=== PATIENT | female | born 1990 | race Hispanic/Latino ===

== ENCOUNTER → 2017-07-06 | Day surgery (SDC) | payer BC ==
[~2017-07-06] MED LIST: Lactated Ringer's 1,000 ML IV SCH; Ondansetron HCl/PF 4 MG/2 ML Vial IVP PRN; Promethazine HCl 25 MG/ML VIAL IM/IV PRN
[2017-07-06 21:11] VITALS: BMI 37.8
[2017-07-06 22:07] LABS: #Eosinphils 0.1 thou/uL (0.0-0.7); #Lymphocytes 2.1 thou/uL (1.20-3.40); #Monocytes 0.6 thou/uL (0.11-0.59); #Neutrophils 6.3 thou/uL (1.40-6.50); %Basophils 0.2 % (0.0-1.0); %Eosinophils 1.3 % (0.0-10.0); %Lymphocytes 22.7 % (21.0-51.0); %Monocytes 6.2 % (0.0-10.0); Hematocrit 33.7 % (36.0-47.0); Mean Platelet Volume 6.5 fL (7.4-10.4); Red Blood Cell (RBC) Count 3.97 mill/uL (4.20-5.40)
[2017-07-06 22:22] LABS: ALT (SGPT) 10 U/L (8-55); AST (SGOT) 9 U/L (5-34); Alkaline Phosphatase 104 U/L (40-150); Anion Gap 11 mmol/L (10-20); BUN (Urea Nitrogen) 8 mg/dL (7.0-18.7); Bilirubin, Total 0.3 mg/dL (0.2-1.2); Calc. Creatinine Clearance 214 mL/min (70-130); Calcium 9.3 mg/dL (7.8-10.44); Carbon Dioxide 25 mmol/L (22-29); Chloride 104 mmol/L (98-107); Estimated GFR-MDRD Greater than 90; Globulin 3.4 g/dL (2.4-3.5); Protein, Total 6.7 g/dL (6.0-8.3)
--- NOTE | 2017-07-07 00:24 | PRG ---
DATE OF SERVICE: 07/06/2017 PRESENTING COMPLAINT: Nausea and vomiting at 30 weeks' gestation. HISTORY OF PRESENT ILLNESS: Ms. Matamoros is a 26-year-old 3, para 0, AB 2 at 30-31 weeks' gest ation, who sees Dr. Anastacia Thurston and she reports nausea and vomiting over the weekend. She denies fev er. She denies rupture of membranes. She denies right upper quadrant pain. OB [employer] HISTORY: SAB x2. Reports an uncomplicated . Antepartum record not available. PAST MEDICAL HISTORY: None. PAST SURGICAL HISTORY: None. ALLERGIES: Denies. MEDICATIONS: vitamins. SOCIAL HISTORY: Denies tobacco, alcohol, IV drug use. FAMILY HISTORY: Noncontributory. REVIEW OF SYSTEMS: Noncontributory. PHYSICAL EXAMINATION: GENERAL: Female in no acute distress. VITAL SIGNS: Temperature 98.4, respirations 18, blood pressure 118/72, pulse 90. HEENT: Within normal limits. LUNGS: Clear to auscultation bilaterally. HEART: Regular rate and rhythm. ABDOMEN: Soft and nontender. She has mild midepigastric discomfort on deep palpation. She has no r ight upper quadrant tenderness. No CVA tenderness. FHTs are 140s. PELVIC: Deferred. EXTREMITIES: Without clubbing, cyanosis, or edema. LABORATORY STUDIES: The patient's white count is 9.0, hematocrit is 33%, platelet count is slightly elevated at 401. Differential is within normal limits. Comprehensive metabolic panel is unremarkabl e. HEART RATE TRACING: heart rate is noted to be 130s-140s, positive accels, no decels, no contractions noted. CLINICAL COURSE: The patient received approximately 2 liters of lactated Ringer's as well as Phenerg an 25 mg. She had immediate improvement in her symptomatology and after approximately 2 hours, she i s discharged home, to keep scheduled followup with Dr. Anastacia Thurston.
== END ==
LOC: L&D/OP 20:47
PROVIDERS: ATTEND Family Medicine
DX: O99.89 Other specified diseases and conditions complicating pregnancy, childbirth and the puerperium (principal); R11.2 Nausea with vomiting, unspecified; Z79.899 Other long term (current) drug therapy; Z3A.31 31 weeks gestation of pregnancy
CPT/HCPCS: 80053; 85025; 96360; 96361; 96372; 96375; J2405; J2550

== ENCOUNTER 2017-08-06 00:06 | Day surgery (SDC) | payer BC ==
[2017-08-06 00:32] VITALS: BP 112/63; TEMP 98.1; BMI 39.8
--- NOTE | 2017-08-06 01:30 | PDOC.LDHP ---
Labor and Delivery H&P Chief complaint: contractions HPI: 26 y/o at 35w1d, patient of Anastacia Thurston, presents with contractions every 7 mins starting at 11pm. Denies VB, LOF, or decreased FM. ROS neg for HEENT, cv, pulm, gi, gu, neuro, psych, skin, musculoskeletal or constitutional symptoms other than mentioned above. OB History Details: 2 prior SABs Current complications: none Past Medical History: History of migraines Obesity Current medications: pre-billie vitamins Previous surgical history: cholecystectomy Allergies/Adverse Reactions: Allergies Allergy/AdvReac Type Severity Reaction Status Date / Time No Known Allergies Allergy Verified 07/06/17 21:12 Social history: none - Physical Exam Vital signs reviewed and normal: yes General: NAD, resting Lungs: nonlabored breathing Abdomen: gravid Extremeties: no edema FHT: category 1 (140s, mod variability, + accels, no decels) [place] contractions every: 6-8 mins - Vaginal Exam cm dilated: 1 (posterior) Effacement: 25% Station: -3 - Assessment 26 y/o at 35w1d with no e/o active labor. status reassuring with reactive NST. - Plan -: D/c home with precautions. Advised to keep all appointments.
== END 2017-08-06 01:30 | disposition home or self-care (01) ==
LOC: L&D/OP 00:06
PROVIDERS: ATTEND Family Medicine
DX: O47.03 False labor before 37 completed weeks of gestation, third trimester (principal); O99.213 Obesity complicating pregnancy, third trimester; E66.9 Obesity, unspecified; Z68.39 Body mass index [BMI] 39.0-39.9, adult; O99.353 Diseases of the nervous system complicating pregnancy, third trimester; G43.909 Migraine, unspecified, not intractable, without status migrainosus; Z79.899 Other long term (current) drug therapy; Z90.49 Acquired absence of other specified parts of digestive tract; Z3A.35 35 weeks gestation of pregnancy
CPT/HCPCS: 59025; 99282

== ENCOUNTER 2017-08-22 17:28 | Day surgery (SDC) | payer BC ==
[2017-08-22 17:58] VITALS: BMI 40.1
[2017-08-22] MEDS ORDERED: Acetaminophen 500 MG TAB PO PRN (18:18)
--- NOTE | 2017-08-22 19:55 | PDOC.LDHP ---
Labor and Delivery H&P Chief complaint: contractions HPI: 26 y/o at 37w3d, patient of Dr. Anastacia Thurston, present with contractions and low back pain. They started last night every 10 minutes and became more regular this afternoon. Denies VB, LOF, or decreased FM. ROS neg for HEENT, CV, pulm, GI, , neuro, psych, skin, musculoskeletal, or constitutional symptoms other than mentioned above. OB History Details: 2 prior miscarriages Past Medical History: History of migraines Obesity Current medications: pre-billie vitamins, other (Tylenol) Previous surgical history: cholecystectomy Allergies/Adverse Reactions: Allergies Allergy/AdvReac Type Severity Reaction Status Date / Time No Known Allergies Allergy Verified 08/22/17 17:48 Social history: none - Physical Exam Vital signs reviewed and normal: yes General: NAD Lungs: nonlabored breathing Abdomen: gravid FHT: category 1 (135, mod variability, + accels, no decels) [place] contractions every: 5-8 mins - Vaginal Exam cm dilated: 2 (unchanged after 2 hours.) Effacement: 75% Station: -1 - Assessment 26 y/o at 37w3d with no e/o active labor. status reassuring with reactive NST. - Plan -: D/c home with precautions. Comfort measures discussed. Advised to keep all appointments.
== END 2017-08-22 19:50 | disposition home or self-care (01) ==
LOC: L&D/OP 17:28
PROVIDERS: ATTEND Family Medicine
DX: O60.03 Preterm labor without delivery, third trimester (principal); O99.213 Obesity complicating pregnancy, third trimester; E66.9 Obesity, unspecified; G47.33 Obstructive sleep apnea (adult) (pediatric); Z3A.37 37 weeks gestation of pregnancy; Z68.41 Body mass index [BMI] 40.0-44.9, adult; Z79.899 Other long term (current) drug therapy; Z90.49 Acquired absence of other specified parts of digestive tract
CPT/HCPCS: 99282; 99283

== ENCOUNTER 2017-09-01 13:34 | Outpatient (CLI) | payer BC ==
--- NOTE | 2017-09-01 14:40 | ULT ---
OB ULTRASOUND: Date: 09/01/17 HISTORY: Size and dates. FINDINGS: A single live intrauterine gestation is seen with measurements corresponding to an estimated gestatio nal age of 38 weeks and 5 days. CARLITOS at 09/10/17. The estimated weight measures 3674 gm (8 lbs 2 oz). measurements are as follows: BPD: 9.49 cm, 38 weeks/5 days HC: 33.21 cm, 37 weeks/6 days AC: 35.51 cm, 39 weeks/3 days FL: 7.63 cm, 39 weeks/0 days heart rate measures 141 beats/minute. MG is 17 cm. Placenta is anteriorly located without evid ence of placenta previa. presentation is cephalic. IMPRESSION: Single live intrauterine of 38 weeks/5 days. CARLITOS at 09/10/17. POS: NED
== END 2017-09-01 13:35 | disposition home or self-care (01) ==
LOC: ULT 13:34
PROVIDERS: ATTEND Family Medicine
DX: O36.63X0 Maternal care for excessive fetal growth, third trimester, not applicable or unspecified (principal); Z3A.38 38 weeks gestation of pregnancy
CPT/HCPCS: 76805

== ENCOUNTER 2017-09-03 07:03 | Inpatient (IN) | payer BC ==
[2017-09-03] MEDS ORDERED: Promethazine HCl 25 MG/ML VIAL IM PRN ×3 (08:02→22:09)
[2017-09-03] MEDS ORDERED: LR / Pitocin 40 units/1000 ml 1,000 ML IV PRN (08:02)
[2017-09-03] MEDS ORDERED: Ondansetron HCl/PF 4 MG/2 ML Vial IVP PRN ×3 (08:02→22:09)
[2017-09-03] MEDS ORDERED: Misoprostol 200 MCG TAB PR PRN (08:02)
[2017-09-03] MEDS ORDERED: Acetaminophen 500 MG TAB PO PRN (08:02)
[2017-09-03] MEDS ORDERED: Ibuprofen 800 MG TAB PO PRN (08:02)
[2017-09-03] MEDS ORDERED: Acetaminophen/Codeine 30-300mg Tablet PO PRN ×2 (08:02→22:09)
[2017-09-03] MEDS ORDERED: Lidocaine 1% (PF) 30 ML VIAL SC PRN (08:02)
[2017-09-03] MEDS ORDERED: Methylergonovine 0.2 MG/ML VIAL IM PRN (08:02)
[2017-09-03] MEDS ORDERED: HYDROcodone/Acetaminophen 5/325 mg Tablet PO PRN (08:02)
[2017-09-03] MEDS ORDERED: LR 500 ML/Oxytocin 10 units 500 ML IV SCH ×2 (08:02)
[2017-09-03] MEDS: Lactated Ringer's 1,000 ML IV SCH ×2 (08:36→12:23)
[2017-09-03 08:45] VITALS: BMI 40.9
[2017-09-03] MEDS ORDERED: Bupivacaine 0.25% HCL 30 ML VIAL ONE (09:00)
[2017-09-03 09:32] LABS: Hemoglobin 10.6 g/dL (12.0-16.0); Mean Corpuscular HGB CONC 33.1 g/dL (32.0-36.0); Mean Corpuscular Hemoglobin 26.4 pg (27.0-31.0); Mean Corpuscular Volume 79.7 fl (81.0-99.0); Mean Platelet Volume 7.3 fL (7.4-10.4); Platelet Count 325 thou/uL (130-400); RBC Distribution Width 15.1 % (11.5-14.5); Red Blood Cell (RBC) Count 3.99 mill/uL (4.20-5.40); White Blood Cell (WBC) Count 7.7 thou/uL (4.8-10.8)
[2017-09-03 10:06] LABS: HBSAg Index 0.17 S/CO (0-0.99); Hep B Surf Ag Non-Reactive S/CO (NonReactive); Syphilis Antibody Nonreactive (Nonreactive); Syphilis Antibody Index 0.03 S/CO (<1.00 Non-Reactive)
[2017-09-03] MEDS ORDERED: Bupivacaine 20 ML, Fentanyl 400 MCG in Sodium Chloride 0.9% 72 ML EPIDURAL SCH ×2 (11:15→18:00)
[2017-09-03] MEDS ORDERED: Bupivacaine 0.75% W/DEXTROSE 8.25% 2 ML AMP ONE (11:43)
[2017-09-03] MEDS ORDERED: Fentanyl 100 MCG/2 ML VIAL ONE (11:54)
[2017-09-03] MEDS ORDERED: Bupivacaine 0.75% W/DEXTROSE 8.25% 2 ML AMP NERVE BLCK ONE (12:25)
[2017-09-03] MEDS ORDERED: Fentanyl 100 MCG/2 ML VIAL I-THECAL ONE (12:25)
[2017-09-03] MEDS ORDERED: Lactated Ringer's 500 ML IV PRN (12:26)
[2017-09-03] MEDS ORDERED: Naloxone HCl 0.4 mg/ml Vial IVP PRN ×2 (12:26)
[2017-09-03] MEDS ORDERED: ePHEDrine/0.9% NaCl/PF SYRINGE 50 mg/10 ml SLOW IVP PRN (12:26)
[2017-09-03] MEDS ORDERED: Eucerin (Mineral Oil/Petrolatum,White) 30 gm Jar TOP PRN (12:26)
[2017-09-03] MEDS ORDERED: Acetaminophen 325 MG TAB PO PRN (12:26)
[2017-09-03] MEDS ORDERED: diphenhydrAMINE 50 MG/ML VIAL IVP PRN (12:26)
[2017-09-03] MEDS ORDERED: Communication Order-Pharmacy FS SCH (12:30)
[2017-09-03] MEDS ORDERED: Fentanyl 4mcg/Marcaine 0.1% Cassette 100 ML EPIDURAL SCH (12:30)
[2017-09-03] MEDS ORDERED: Benzocaine/Menthol 20-0.5% 60 ML CAN TOP PRN (22:09)
[2017-09-03] MEDS ORDERED: diphenhydrAMINE 25 MG CAP PO PRN (22:09)
[2017-09-03] MEDS ORDERED: LR / Pitocin 40 units/1000 ml 1,000 ML IV SCH (22:09)
[2017-09-03] MEDS ORDERED: Bisacodyl 10 MG SUPP PR PRN (22:09)
[2017-09-03] MEDS ORDERED: Milk Of Magnesia 30 ML UDCUP PO PRN (22:09)
[2017-09-03] MEDS ORDERED: Adacel (T-DAP) 0.5 ML VIAL IM ONE (22:09)
[2017-09-03] MEDS ORDERED: Preparation H Ointment 28 GM TUBE PR PRN (22:09)
[2017-09-03] MEDS ORDERED: Lanolin Ointment 7 GM TUBE TOP PRN (22:09)
[2017-09-03] MEDS ORDERED: Prenatal Vitamin 1 TAB PO SCH (22:30)
[2017-09-03] MEDS ORDERED: Ferrous Sulfate 325 MG TAB PO SCH (22:30)
[2017-09-03] MEDS ORDERED: Docusate Calcium (SURFAK) 240 MG CAP PO SCH (22:30)
[2017-09-03] MEDS ORDERED: Ibuprofen 800 MG TAB PO SCH (22:30)
[2017-09-03] MEDS: Ibuprofen 800 MG TAB PO SCH (23:15)
[2017-09-03] MEDS: Ferrous Sulfate 325 MG TAB PO SCH (23:16)
[2017-09-03] MEDS: Docusate Calcium (SURFAK) 240 MG CAP PO SCH (23:18)
[2017-09-03] MEDS: Prenatal Vitamin 1 TAB PO SCH (23:18)
[2017-09-04 06:17] LABS: Hemoglobin 9.8 g/dL (12.0-16.0); Mean Corpuscular HGB CONC 32.5 g/dL (32.0-36.0); Mean Platelet Volume 7.1 fL (7.4-10.4); Platelet Count 278 thou/uL (130-400); Red Blood Cell (RBC) Count 3.78 mill/uL (4.20-5.40); White Blood Cell (WBC) Count 9.5 thou/uL (4.8-10.8)
[2017-09-04] MEDS: Ibuprofen 800 MG TAB PO SCH ×2 (08:43→17:28)
[2017-09-04] MEDS: Docusate Calcium (SURFAK) 240 MG CAP PO SCH ×2 (08:43→20:00)
[2017-09-04] MEDS: Ferrous Sulfate 325 MG TAB PO SCH ×2 (08:43→17:30)
[2017-09-04] MEDS: Prenatal Vitamin 1 TAB PO SCH (08:43)
[2017-09-04] MEDS: HYDROcodone/Acetaminophen 5/325 mg Tablet PO PRN (20:00)
[2017-09-05] MEDS: Ibuprofen 800 MG TAB PO SCH ×3 (04:06→14:51)
[2017-09-05] MEDS: HYDROcodone/Acetaminophen 5/325 mg Tablet PO PRN (05:18)
[2017-09-05] MEDS: Docusate Calcium (SURFAK) 240 MG CAP PO SCH (09:29)
[2017-09-05] MEDS: Ferrous Sulfate 325 MG TAB PO SCH (09:29)
[2017-09-05] MEDS: Prenatal Vitamin 1 TAB PO SCH (09:29)
[2017-09-05 10:07] VITALS: BP 111/70; TEMP 96
[2017-09-05] MEDS ORDERED: Measles/Mumps/Rubella 10 MCG/0.5 ML VIAL SC ONE (11:30)
== END 2017-09-05 15:30 | disposition home or self-care (01) | DRG 775 ==
LOC: L&D 07:03 → 3SW 21:01
PROVIDERS: ADMIT Family Medicine; ATTEND Family Medicine
PROC: 10E0XZZ Delivery of Products of Conception, External Approach (ICD-10-PCS; principal; 2017-09-03)
PROC: 0KQM0ZZ Repair Perineum Muscle, Open Approach (ICD-10-PCS; 2017-09-03)
PROC: 3E033VJ Introduction of Other Hormone into Peripheral Vein, Percutaneous Approach (ICD-10-PCS; 2017-09-03)
PROC: 3E0234Z Introduction of Serum, Toxoid and Vaccine into Muscle, Percutaneous Approach (ICD-10-PCS; 2017-09-05)
DX: O70.1 Second degree perineal laceration during delivery (principal); Z37.0 Single live birth; Z23 Encounter for immunization; Z3A.39 39 weeks gestation of pregnancy
CPT/HCPCS: 36415; 51702; 85027; 86780; 87340; J2001; J3010; J3490; J7050; J7120; S0020

== ENCOUNTER 2017-09-06 14:49 | Emergency (ER) | payer BC ==
[2017-09-06] MEDS ORDERED: diphenhydrAMINE 50 MG/ML VIAL ONE (17:23)
[2017-09-06] MEDS ORDERED: Metoclopramide HCl 10 MG/2 ML VIAL ONE (17:23)
[2017-09-06] MEDS ORDERED: methylPREDNISolone Sod Succ/PF 125 MG/2 ML VIAL ONE (17:23)
[2017-09-06] MEDS ORDERED: Magnesium 2 GM/NS 0.9% 100 ML 2 GM in Premix Bag 1 BAG IVPB ONE (18:30)
== END 2017-09-06 20:55 | disposition home or self-care (01) ==
LOC: ERS 14:49
DX: G43.909 Migraine, unspecified, not intractable, without status migrainosus (principal); E66.9 Obesity, unspecified
CPT/HCPCS: 96365; 96366; 96367; 96375; J1200; J2765; J2930; J3475

== ENCOUNTER 2018-07-12 21:09 | Emergency (ER) | payer BC ==
[2018-07-12] MEDS ORDERED: Ondansetron ODT 4 MG TAB ONE (21:20)
[2018-07-12] MEDS ORDERED: Lidocaine 2% Jelly 5 ML TUBE ONE ×2 (21:26→21:31)
== END 2018-07-12 22:20 | disposition home or self-care (01) ==
LOC: ERS 21:09
DX: K08.89 Other specified disorders of teeth and supporting structures (principal); G43.909 Migraine, unspecified, not intractable, without status migrainosus; E66.9 Obesity, unspecified; Z79.899 Other long term (current) drug therapy
CPT/HCPCS: 64400; Q0162

== ENCOUNTER 2019-01-04 09:24 | Outpatient (CLI) | payer BC ==
--- NOTE | 2019-01-04 10:38 | ULT ---
Ultrasound obstetrical complete: DATE: 01/04/2019 HISTORY: "Normal in multigravida" in 28-year-old female FINDINGS: number:[place] lie:[place] Maternal cervix: 3 cm. Closed. Placenta:Anterior. No placenta previa. Amniotic fluid: MG:12.5 cm. heart rate:114 - 150 bpm. 4. 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 This resolved. The following anatomy is visualized without evidence of anomalies: Head, cerebellum, lateral ventricles, four-chamber heart, stomach, kidneys, cord insertion, bladder, cervical spine, thoracic spine, lumbar spine, sacrum, upper extremities, lower extreme venous. Three-vessel cord, and nose and lips, not well visualized. biometry: BPD: 4.3 cm: 19 w 0 d HC: 16.3 cm: 19 w 1 d AC:14.6 cm: 20 w 0 d FL:2.8 cm: 18 w 4 d Average ultrasound age: 19 w 2 Estimated date of delivery: 05/29/2019 Estimated weight: 279g +/ -41g IMPRESSION: 1) 2nd trimester intrauterine gestation. 2) estimated gestational age of: 19 weeks 2 days 3) lie:[place] 4) episode of severe bradycardia.
== END 2019-01-04 09:25 | disposition home or self-care (01) ==
LOC: BICULT 09:24
PROVIDERS: ATTEND Family Medicine
DX: Z34.82 Encounter for supervision of other normal pregnancy, second trimester (principal); O32.1XX0 Maternal care for breech presentation, not applicable or unspecified; O76 Abnormality in fetal heart rate and rhythm complicating labor and delivery; Z3A.19 19 weeks gestation of pregnancy
CPT/HCPCS: 76805

== ENCOUNTER 2019-01-29 01:20 | Emergency (ER) | payer BC | END 2019-01-29 02:11 | disposition home or self-care (01) | LOC: ERS 01:20 | DX: T63.2X1A Toxic effect of venom of scorpion, accidental (unintentional), initial encounter (principal); E66.9 Obesity, unspecified; Z79.899 Other long term (current) drug therapy | CPT/HCPCS: 99282 ==

== ENCOUNTER 2019-02-08 07:56 | Day surgery (SDC) | payer BC ==
[2019-02-08 05:32] LABS: #Eosinphils 0.1 thou/uL (0.0-0.7); #Lymphocytes 2.4 thou/uL (1.20-3.40); #Monocytes 0.5 thou/uL (0.11-0.59); #Neutrophils 6.3 thou/uL (1.40-6.50); %Basophils 0.3 % (0.0-1.0); %Eosinophils 1.6 % (0.0-10.0); %Monocytes 5.1 % (0.0-10.0); Hemoglobin 11.4 g/dL (12.0-16.0); Mean Corpuscular HGB CONC 34.3 g/dL (32.0-36.0); Mean Corpuscular Volume 84.7 fL (78.0-98.0); Mean Platelet Volume 6.8 fL (7.4-10.4); Platelet Count 374 thou/uL (130-400); Red Blood Cell (RBC) Count 3.92 mill/uL (4.20-5.40); White Blood Cell (WBC) Count 9.4 thou/uL (4.8-10.8)
[2019-02-08 05:51] LABS: Bilirubin Negative (Negative); Blood, Urine Negative (Negative); Clarity Clear (Clear); Glucose, Urine (Dipstick) Normal (Negative); Leukocyte Negative Leu/uL (Negative); Nitrite Negative (Negative); Protein, Urine (Dipstick) Negative (Neg-Trace); Urobilinogen Normal mg/dL (Less than 2)
[2019-02-08 06:00] LABS: ALT (SGPT) 12 U/L (8-55); AST (SGOT) 13 U/L (5-34); Albumin 3.6 g/dL (3.5-5.0); Alkaline Phosphatase 79 U/L (40-150); Anion Gap 14 mmol/L (10-20); BUN (Urea Nitrogen) 7 mg/dL (7.0-18.7); Bilirubin, Total 0.3 mg/dL (0.2-1.2); Calc. Creatinine Clearance 0 mL/min (70-130); Calcium 8.9 mg/dL (7.8-10.44); Carbon Dioxide 22 mmol/L (22-29); Chloride 104 mmol/L (98-107); Estimated GFR-MDRD Greater than 90; Globulin 3.2 g/dL (2.4-3.5); Glucose 78 mg/dL (70-105); Lipase 10 U/L (8-78); Potassium 3.9 mmol/L (3.5-5.1); Protein, Total 6.8 g/dL (6.0-8.3); Sodium 136 mmol/L (136-145)
[~2019-02-08 07:56] MED LIST changes: +Acetaminophen 500 MG TAB ONE; -Lactated Ringer's 1,000 ML IV SCH; +Metoclopramide HCl 10 MG/2 ML VIAL ONE; -Ondansetron HCl/PF 4 MG/2 ML Vial IVP PRN; +Ondansetron PF 4 MG/2 ML Vial ONE; -Promethazine HCl 25 MG/ML VIAL IM/IV PRN; +Promethazine HCl 25 MG/ML VIAL ONE; +diphenhydrAMINE 50 MG/ML VIAL ONE
[2019-02-08 08:11] VITALS: BMI 38.4
--- NOTE | 2019-02-08 08:53 | PDOC.EVN ---
Event Note - Event Note Event Note: Pt seen, labs have been reviewed, dictation pending
[2019-02-08] MEDS ORDERED: Lactated Ringer's 1,000 ML IV SCH (09:00)
--- NOTE | 2019-02-08 09:36 | HP ---
TIME OF EVALUATION: 0830 hours, time now is 0850 hours. LOCATION: Triage, bed A. REASON FOR EVALUATION: A 24-week gestation with persistent nausea/vomiting/diarrhea. This is a patient of Dr. Anastacia Thurston. HISTORY OF PRESENT ILLNESS: This is a 28-year-old , 3, para 1 , living 1, with any EDC of 05/29, placing her within an EGA of 24 weeks and 2 days. She was first seen in the ER for nausea, vomiting, and diarrhea, and was given IV fluid hydration as well as lab evaluation. She denies vaginal bleeding, leakage of fluid, or contractions. She denies any other issues. She has an appointment with Dr. Anastacia Thurston next week and has been without issues up to this time. She denies sick contacts or strange p.o. intake. Her significant other has no similar symptoms. REVIEW OF SYSTEMS: After review, review of systems reveals positive pertinents as per HPI. PAST MEDICAL HISTORY: History of migraine headaches. PAST SURGICAL HISTORY: Cholecystectomy. OB HISTORY: She has had a vaginal delivery about a year and a half ago. ALLERGIES: NONE. SOCIAL HISTORY: Negative for alcohol, tobacco, or drug use. PHYSICAL EXAMINATION: VITAL SIGNS: Blood pressure is 94/54, respirations are 16, and she is afebrile with a temperature of 98. GENERAL: Clinically, she is in no acute distress. ABDOMEN: Obese (BMI 38.4). On monitor: A complete nonstress test was not performed as she is under 28 weeks of gestation. However, heart tones were captured for about 5 minutes on the monitor at about 140s without overt abnormality. The heart tones were normal for gestational age. No contractions were noted, but this may be limited due to BMI. LABORATORY DATA: On laboratory assessment, CBC was drawn as was a CMP and a urine in the ER. These are without overt abnormalities. Interventions pending. I have ordered a cervical length to check for asymptomatic cervical shortening and I have also changed her fluids from normal saline, which she received in the ER to lactated Ringer. ASSESSMENT: This is a 28-year-old, G3, P1 at 24 weeks and 2 days with nausea, vomiting, and diarrhea, likely gastroenteritis without overt source. There is no history of bloody stool, explosive diarrhea, or other sick contacts. There is no evidence of labor. PLAN: 1. I will check a cervical length. 2. Change IV fluids to lactated Ringer. 3. No overt lab abnormalities noted. 4. My index of suspicion for labor is low at this point, but we are ordering the cervical length for conservative care. Job ID: [id number]
--- NOTE | 2019-02-08 10:55 | ULT ---
Exam: Limited OB ultrasound HISTORY: Evaluate cervical length. Comparison none TECHNIQUE: Sagittal and transverse imaging of the gravid uterus is performed FINDINGS: Single intrauterine gestation, transverse to maternal right position. Anterior placenta. Cervical length is 3.4 cm. heart tones with a rate of 137 bpm IMPRESSION: Cervical length of 3.4 cm.
== END 2019-02-08 10:55 | disposition home or self-care (01) ==
LOC: L&D/OP 07:56 → SDC 07:56 → EDSTATUS 07:58 → L&D/OP 10:55
PROVIDERS: ATTEND Emergency Medicine
DX: O21.2 Late vomiting of pregnancy (principal); O99.89 Other specified diseases and conditions complicating pregnancy, childbirth and the puerperium; R19.7 Diarrhea, unspecified; O99.352 Diseases of the nervous system complicating pregnancy, second trimester; G43.909 Migraine, unspecified, not intractable, without status migrainosus; O99.212 Obesity complicating pregnancy, second trimester; E66.9 Obesity, unspecified; Z3A.24 24 weeks gestation of pregnancy
CPT/HCPCS: 36415; 76815; 80053; 81003; 83605; 83690; 85025; 96360; 96361; 99282; J1200; J2405; J2550; J2765

== ENCOUNTER 2019-05-13 17:20 | Day surgery (SDC) | payer BC ==
[2019-05-13 19:10] VITALS: BMI 38.6
[2019-05-13] MEDS ORDERED: hydrALAZINE 20 MG/ML VIAL SLOW IVP PRN (22:01)
[2019-05-13] MEDS ORDERED: Zolpidem Tartrate 5 MG TAB PO PRN (22:02)
--- NOTE | 2019-05-13 22:39 | PRG ---
DATE OF SERVICE: 05/13/2019 PRESENTING COMPLAINT: Contractions, possible labor at 37-1/2 weeks gestation. HISTORY OF PRESENT ILLNESS: Ms. Matamoros is a G4, P1, AB-2, with an EDC of 06/01, who presents complaining of contractions. She was noted to be 250, -2 in the office earlier today. She denies rupture of membranes. Reports an active fetus. She has had an uncomplicated with Dr. Anastacia Thurston. Blood type O positive. PAST MEDICAL HISTORY: Denies. PAST SURGICAL HISTORY: Denies. ALLERGIES: DENIES. MEDICATIONS: vitamins. SOCIAL HISTORY: Denies tobacco, alcohol, or drug use. FAMILY HISTORY: Noncontributory. REVIEW OF SYSTEMS: Noncontributory. PHYSICAL EXAMINATION: GENERAL: Obese, female, in no acute distress. VITAL SIGNS: Temperature 98.2, respirations 18, pulse 95, blood pressure 118/72. HEENT: Within normal limits. LUNGS: Clear to auscultation bilaterally. HEART: Regular rate and rhythm. ABDOMEN: Soft, nontender with occasional and minimal contractions. Cervical exam by RN was 250, -2. The patient was about to walk for 2 to 3 hours and rechecked, it was still noted to be 250, -2. heart rate tracing was category 1 with positive accelerations, no decelerations. Contractions every 4 to 6 minutes. IMPRESSION: Late in labor, no progress, at 37 weeks gestation with reassuring heart rate tracing. PLAN: Discharge home. Delilah valderrama for sleep. Keep scheduled followup with Dr. Thurston. Job ID: [id number]
== END 2019-05-13 22:15 | disposition home or self-care (01) ==
LOC: L&D/OP 17:20 → EDSTATUS 18:37 → L&D/OP 18:39
PROVIDERS: ATTEND Family Medicine
DX: O47.1 False labor at or after 37 completed weeks of gestation (principal); O99.213 Obesity complicating pregnancy, third trimester; Z3A.37 37 weeks gestation of pregnancy

== ENCOUNTER → 2019-05-27 13:10 | Inpatient (IN) | payer BC ==
[2019-05-25] MEDS: Lactated Ringer's 1,000 ML IV SCH (22:20)
[2019-05-25 22:39] LABS: Hemoglobin 11.6 g/dL (12.0-16.0); Mean Corpuscular HGB CONC 33.6 g/dL (32.0-36.0); Mean Corpuscular Hemoglobin 27.7 pg (27.0-31.0); Mean Corpuscular Volume 82.4 fL (78.0-98.0); Mean Platelet Volume 7.5 fL (7.4-10.4); Platelet Count 302 thou/uL (130-400); RBC Distribution Width 14.8 % (11.5-14.5); Red Blood Cell (RBC) Count 4.21 mill/uL (4.20-5.40); White Blood Cell (WBC) Count 8.6 thou/uL (4.8-10.8)
[2019-05-25 23:13] LABS: HBSAg Index 0.18 S/CO (0-0.99); Hep B Surf Ag Non-Reactive S/CO (NonReactive); Syphilis Antibody Nonreactive (Nonreactive); Syphilis Antibody Index 0.04 S/CO (<1.00 Non-Reactive)
[2019-05-25 23:25] VITALS: BMI 40.1
[2019-05-26] MEDS: Lactated Ringer's 1,000 ML IV SCH (12:17)
[2019-05-26] MEDS: Ibuprofen 800 MG TAB PO SCH (13:34)
[2019-05-26] MEDS: Ferrous Sulfate 325 MG TAB PO SCH (13:43)
[2019-05-27] MEDS: Ibuprofen 800 MG TAB PO SCH (00:17)
[2019-05-27] MEDS: Docusate Calcium (SURFAK) 240 MG CAP PO SCH ×2 (00:17→09:00)
[2019-05-27 08:25] VITALS: TEMP 97.9
[2019-05-27] MEDS: Ferrous Sulfate 325 MG TAB PO SCH (08:59)
[2019-05-27 11:41] VITALS: BP 112/73
[~2019-05-27 13:10] MED LIST changes: +Acetaminophen 325 MG TAB PO PRN; -Acetaminophen 500 MG TAB ONE; +Acetaminophen 500 MG TAB PO PRN; +Acetaminophen/Codeine 30-300mg Tablet PO PRN; +Benzocaine-Menthol 82.5 ML CAN TOP PRN; +Bisacodyl 10 MG SUPP PR PRN; +Butorphanol Tartrate 1 MG/ML VIAL SLOW IVP PRN; +Communication Order-Pharmacy FS SCH; +Docusate Calcium (SURFAK) 240 MG CAP PO SCH; +Fentanyl 4 mcg/Bup 0.1% Cadd 100 ML ONE; +Fentanyl 4 mcg/Bupivacaine 0.1% Cassette 100 ML EPIDURAL SCH; +Ferrous Sulfate 325 MG TAB PO SCH; +HYDROcodone/Acetaminophen 5/325 mg Tablet PO PRN; +Ibuprofen 800 MG TAB PO PRN; +Lactated Ringer's 500 ML IV PRN; +Lidocaine 1% (PF) 30 ML VIAL ONE; +Lidocaine 1% (PF) 30 ML VIAL SC PRN; -Metoclopramide HCl 10 MG/2 ML VIAL ONE; +Milk Of Magnesia 30 ML UDCUP PO PRN; +Misoprostol 200 MCG TAB PR PRN; +NS / Oxytocin 40 units/1000ml 1,000 ML IV PRN; +NS / Oxytocin 40 units/1000ml 1,000 ML IV SCH; +NS / Oxytocin 40 units/1000ml 1,000 ML ONE; +NS w/ Oxytocin 10 units 500 ML IV SCH; +Naloxone HCl 0.4 mg/ml Vial IVP PRN; +Ondansetron PF 4 MG/2 ML Vial IVP PRN; -Ondansetron PF 4 MG/2 ML Vial ONE; +Prenatal Vitamin 1 TAB PO SCH; +Preparation H Ointment 28 GM TUBE PR PRN; +Promethazine HCl 25 MG/ML VIAL IM PRN; -Promethazine HCl 25 MG/ML VIAL ONE; +Zolpidem Tartrate 5 MG TAB PO PRN; +diphenhydrAMINE 25 MG CAP PO PRN; +diphenhydrAMINE 50 MG/ML VIAL IVP PRN; -diphenhydrAMINE 50 MG/ML VIAL ONE; +ePHEDrine/0.9% NaCl/PF SYRINGE 50 mg/10 ml SLOW IVP PRN; +hydrALAZINE 20 MG/ML VIAL SLOW IVP PRN; +traMADol HCl 50 MG TAB PO PRN
== END | disposition home or self-care (01) | DRG 807 ==
LOC: L&D/OP 09-03 06:58 → EDSTATUS 09-03 17:40 → L&D 05-25 20:44 → 3SW 05-26 10:56
PROVIDERS: ADMIT Family Medicine; ATTEND Family Medicine
PROC: 10E0XZZ Delivery of Products of Conception, External Approach (ICD-10-PCS; principal; 2019-05-26)
PROC: 3E033VJ Introduction of Other Hormone into Peripheral Vein, Percutaneous Approach (ICD-10-PCS; 2019-05-26)
DX: O80 Encounter for full-term uncomplicated delivery (principal); Z37.0 Single live birth; Z3A.39 39 weeks gestation of pregnancy
CPT/HCPCS: 36415; 51702; 85027; 86780; 86850; 86900; 86901; 87340; J0595; J2001; J2590

== ENCOUNTER 2022-04-29 19:06 | Emergency (ER) | payer BC ==
[2022-04-29 19:27] LABS: Bilirubin Negative (Negative); Blood, Urine Negative (Negative); Clarity Clear (Clear); Glucose, Urine (Dipstick) Normal (Negative); Ketone, Urine Negative (Negative); Leukocyte Negative Leu/uL (Negative); Nitrite Negative (Negative); Protein, Urine (Dipstick) Negative (Neg-Trace); Specific Gravity, Urine 1.006 (1.002-1.036); Urobilinogen Normal mg/dL (Less than 2)
[2022-04-29 20:15] LABS: #Eosinphils 0.1 thou/uL (0.0-0.7); #Lymphocytes 2.6 thou/uL (1.20-3.40); #Monocytes 0.5 thou/uL (0.11-0.59); #Neutrophils 6.1 thou/uL (1.40-6.50); %Basophils 0.3 % (0.0-1.0); %Eosinophils 1.5 % (0.0-10.0); %Lymphocytes 28.3 % (21.0-51.0); %Monocytes 5.1 % (0.0-10.0); %Neutrophils 64.8 % (42.0-75.0); Hemoglobin 12.1 g/dL (12.0-16.0); Mean Corpuscular HGB CONC 32.7 g/dL (32.0-36.0); Mean Corpuscular Hemoglobin 29.4 pg (27.0-31.0); Mean Platelet Volume 7.3 fL (7.4-10.4); Platelet Count 276 thou/uL (130-400); RBC Distribution Width 13.2 % (11.5-14.5); Red Blood Cell (RBC) Count 4.11 mill/uL (4.20-5.40); White Blood Cell (WBC) Count 9.3 thou/uL (4.8-10.8)
[2022-04-29 20:18] LABS: BHCG - Serum POSITIVE (NEGATIVE); Pregs Control Background? CLEAR/WHITE (CLR/WHITE); Pregs Control Bar Appear? YES (CONTROL BAR)
[2022-04-29 20:42] LABS: ALT (SGPT) 38 U/L (8-55); AST (SGOT) 41 U/L (5-34); Albumin 3.9 g/dL (3.5-5.0); Alkaline Phosphatase 85 U/L (40-110); BUN (Urea Nitrogen) 6 mg/dL (7.0-18.7); Bilirubin, Total 0.3 mg/dL (0.2-1.2); Calc. Creatinine Clearance 0 mL/min (70-130); Calcium 9.3 mg/dL (7.8-10.44); Carbon Dioxide 23 mmol/L (22-29); Chloride 107 mmol/L (98-107); Estimated GFR 121; Globulin 3.3 g/dL (2.4-3.5); Glucose 114 mg/dL (70-105); Potassium 3.6 mmol/L (3.5-5.1); Protein, Total 7.2 g/dL (6.0-8.3); Sodium 138 mmol/L (136-145)
[2022-04-29 20:50] LABS: Anion Gap 12 mmol/L (10-20)
== END 2022-04-29 21:37 | disposition home or self-care (01) ==
LOC: ERS 19:06
DX: O20.0 Threatened abortion (principal); Z3A.01 Less than 8 weeks gestation of pregnancy
CPT/HCPCS: 36415; 76856; 80053; 81003; 84702; 84703; 85025; 86900; 86901

== ENCOUNTER 2022-09-09 06:48 | Emergency (ER) | payer BC ==
[2022-09-09] MEDS ORDERED: Ondansetron ODT 4 MG TAB ONE (08:18)
== END 2022-09-09 10:15 | disposition home or self-care (01) ==
LOC: ERS 06:48
DX: J06.9 Acute upper respiratory infection, unspecified (principal); Z20.822 Contact with and (suspected) exposure to COVID-19; Z79.84 Long term (current) use of oral hypoglycemic drugs
CPT/HCPCS: 87070; 87804; 99283; Q0162; U0003; U0005